=== PATIENT | female | born 1995 | race African-American/Black ===

== ENCOUNTER 2019-07-09 23:33 | Emergency (ER) | payer OTHER, SELFPAY ==
[2019-07-09 23:40] VITALS: BP 168/78; PULSE 100; RESP 19; TEMP 36.8; O2SAT 100
[2019-07-09 23:41] VITALS: BP 159/106; PULSE 90; RESP 16; TEMP 36.4; O2SAT 99
--- NOTE | 2019-07-09 23:58 | ED.DENTAL ---
HPI - Dental/Oral General Chief complaint: Dental/Oral Stated complaint: ST Time Seen by Provider: 07/09/19 23:45 Source: RN notes reviewed History of Present Illness HPI Narrative: Patient presents emergency department from home for sore throat. Patient states symptoms began 3 days ago. Patient notes pain with swallowing. Denies any fevers or chills rhinorrhea or cough. Patient states she is able to tolerate own secretions and is able to drink it is just painful states she took no pain medication today Related Data Allergies Allergy/AdvReac Type Severity Reaction Status Date / Time No Known Allergies Allergy Verified 07/09/19 23:42 Review of Systems Review of Systems: Narrative: Gen.: Denies fevers or chills ENT: See HPI Respiratory: Denies shortness of breath or cough CV: Denies chest pain GI: Denies abdominal pain nausea, emesis denies chance of Musculoskeletal: Denies back pain or muscle pain Neuro: Denies numbness, tingling, weakness or focal weakness Skin: Denies rash Except as documented, all other systems reviewed and negative [facility] Past Medical History Medical History (Updated 07/10/19 @ 00:24 by Alexis Rodriguez DO) Patient denies significant medical history Social History Social History (Updated 07/09/19 @ 23:59 by Alexis Rodriguez DO) Smoking status: Never smoker Gender identity (if verbalized by the patient): Female Exam Narrative: Exam Narrative: APPEARANCE: No acute distress, nontoxic, resting in bed EYES: EOMI HEENT: Normocephalic, atraumatic, TMs clear bilaterally, nares patent, oral mucosa moist erythema the bilateral tonsils and posterior pharynx with moderate white exudate, tonsils 3+, uvula midline, no trismus, tolerating own secretions RESPIRATORY: No respiratory distress Clear to auscultation bilaterally with no rhonchi wheezing or rales. CARDIOVASCULAR: Regular rate and rhythm without murmurs rubs or gallops. ABDOMINAL: Soft, nontender, nondistended, no rebound or guarding MUSCULOSKELETAl: Moves all extremities. No clubbing, cyanosis or edema. NEURO: Awake and alert. Following commands, speech normal, no focal deficits SKIN:: Warm, dry. No rashes lesions or abrasions PSYCHIATRIC: Normal affect/mood, Course Course Emergency Course: Discussed with patient results of workup and diagnosis. Discussed need for follow-up with primary care, proper use of medication, and reasons to return to the emergency department. Patient understands and agrees to current treatment plan Vital Signs Vital signs: Vital Signs Temperature 98.3 F 07/09/19 23:40 Pulse Rate 100 07/09/19 23:40 Respiratory Rate 19 07/09/19 23:40 Blood Pressure 168/78 H 07/09/19 23:40 Pulse Oximetry 100 07/09/19 23:40 Temperature 97.6 F 07/09/19 23:41 Pulse Rate 90 07/09/19 23:41 Respiratory Rate 16 07/09/19 23:41 Blood Pressure 159/106 H 07/09/19 23:41 Pulse Oximetry 99 07/09/19 23:41 MDM - Dental/Oral Lab Data Labs: Strep Screen Presumptive Negative *(Reference Range: Negative)* Discharge Plan Discharge Clinical Impression: Pharyngitis Patient Disposition: Home, Self-Care Condition: Stable Instructions: Antibiotic Form, Pharyngitis (ED) Additional Instructions: Return for increasing pain, fever, inability to swallow or any other symptoms of concern Prescriptions: New amoxicillin 500 mg capsule 500 mg PO Q8H Qty: 30 RF: 0 ibuprofen [IBU] 600 mg tablet 600 mg PO Q6H PRN (Reason: pain) Qty: 20 RF: 0 Follow-up/Referrals: Franklyn Lou MD [Physician] - (Follow-up in 1-2 days for further on-call physician treatment and evaluation) PHYSICIAN,LASTER HAND [Primary Care Provider] - Stand Alone Forms: Work/School Release IP Time of Disposition: 00:25
[2019-07-10] MEDS: IBUPROFEN 600 MG TABLET PO (00:50)
[2019-07-10] MEDS: AMOXICILLIN 500 MG CAPSULE PO (00:50)
== END 2019-07-10 00:51 | disposition home or self-care (01) ==
PROVIDERS: Emergency Provider Emergency Medicine
DX: J02.9 Acute pharyngitis, unspecified (principal)
CPT/HCPCS: 87081; 87880; 99283; A9270